=== PATIENT | female | born 1930 | race Caucasian/White ===

== ENCOUNTER 2017-03-19 22:03 | Observation (INO) | payer MEDICARE, OTHER ==
--- NOTE | 2017-03-19 23:44 | EDM.PDOC ---
ED HPI GENERAL MEDICAL PROBLEM - General Chief Complaint: General Stated Complaint: FALL Time Seen by Provider: 03/19/17 22:17 Source of Information: Reports: Other ([facility] staff) History Limitations: Reports: Altered Mental Status - History of Present Illness INITIAL COMMENTS - FREE TEXT/NARRATIVE: The patient has dementia and she is a resident of [facility] [place]. Today at about 4pm she was walking around and she stepped back and tripped over her leg and fell on her buttocks. Staff got her up and she was doing good. She sat on the couch. She got some dinner later. Now she will stand but she does not want to use her right leg. She has pain when moving it. The senior applications architect nurse evaluated her and could not reproduce any pain with palpation. She does not talk much. She did not hit her head or hurt her neck. Onset: Today, Sudden Duration: Hour(s): (about 4pm) Location: Reports: Lower Extremity, Right (hip) Improves with: Reports: None Worsens with: Reports: Movement Context: Reports: Activity (She was walking and she tripped and fell) Associated Symptoms: Reports: No Other Symptoms Generalized Pain Score (Numeric/FACES): 5 - Related Data Allergies Allergy/AdvReac Type Severity Reaction Status Date / Time No Known Allergies Allergy Verified 03/19/17 22:23 Home Meds: Home Meds Ergocalciferol (Vitamin D2) [Vitamin D] 1.25 mg PO WEEKLY 03/19/17 [History] Latanoprost [Xalatan 0.005% Ophth Soln] 1 drop EYEBOTH BEDTIME 03/19/17 [History ] Lisinopril 1 tab PO DAILY 03/19/17 [History] Multivitamin [Multivitamins] 1 tab PO DAILY 03/19/17 [History] Past Medical History HEENT History: Reports: Glaucoma, Macular Degeneration Cardiovascular History: Reports: Hypertension Social & Family History - Tobacco Use Smoking Status *Q: Never Smoker - Caffeine Use Caffeine Use: Reports: None - Recreational Drug Use Recreational Drug Use: No ED ROS GENERAL - Review of Systems Review Of Systems: See Below Constitutional: Reports: No Symptoms HEENT: Reports: No Symptoms Respiratory: Reports: No Symptoms Cardiovascular: Reports: No Symptoms Endocrine: Reports: No Symptoms GI/Abdominal: Reports: No Symptoms : Reports: No Symptoms Musculoskeletal: Reports: Other (Right leg pain) ED EXAM, GENERAL - Physical Exam Exam: See Below Exam Limited By: Altered Mental Status (She is confused and will only say a few words. She will follow commands) General Appearance: Alert, No Apparent Distress Ears: Normal External Exam Nose: Normal Inspection Head: Atraumatic, Normocephalic Neck: Normal Inspection Respiratory/Chest: No Respiratory Distress, Lungs Clear, Normal Breath Sounds Cardiovascular: Regular Rate, Rhythm, No Edema, No Murmur GI/Abdominal: Soft, Non-Tender, No Organomegaly, No Mass Back Exam: Normal Inspection Extremities: Normal Inspection, Other (No pain with palpation to the hip. No pain with internal and external rotation of the hip and axial loading. Good sensation and pulses distally.) Neurological: Alert, No Motor/Sensory Deficits Course - Vital Signs Last Recorded V/S: Last Vital Signs Temp 98.7 F 03/19/17 22:18 Pulse 89 03/19/17 22:18 Resp 16 03/19/17 22:18 BP 129/67 03/19/17 22:18 Pulse Ox 95 03/19/17 22:18 - Orders/Labs/Meds Orders: Active Orders 24 hr Category Date Time Status Peripheral IV Care [RC] . DIRECTED Care 03/20/17 00:55 Ordered Hip Min 1V w Pelvis Lt [CR] Routine Exams 03/20/17 Taken Hip Min 2V or 3V Rt [CR] Stat Exams 03/19/17 22:41 Taken Knee 3V Lt [CR] Stat Exams 03/19/17 23:48 Taken Lumbar Spine 2 or 3V [CR] Stat Exams 03/19/17 22:41 Taken Sodium Chloride 0.9% [Saline Flush] Med 03/20/17 00:55 Ordered 10 ml FLUSH ASDIRECTED PRN Peripheral IV Insertion Adult [OM.PC] Routine Oth 03/20/17 00:55 Ordered Medication Orders Sodium Chloride (Saline Flush) 10 ml FLUSH ASDIRECTED PRN PRN Reason: Keep Vein Open Meds: Medications Generic Name Dose Route Start Last Admin Trade Name Freq PRN Reason Stop Dose Admin Sodium Chloride 10 ml 03/20/17 00:55 Saline Flush FLUSH ASDIRECTED PRN Keep Vein Open - Re-Assessments/Exams Free Text/Narrative Re-Assessment/Exam: 03/19/17 23:44 I ordered an x-ray of her lumbar spine and right hip. The x-ray of her spine shows some degenerative changes and the x-ray of her hip does not show a fracture. I will have my nurse get her up and see how she does. 03/19/17 23:49 I went in to update the staff and family of the x-rays and the patient has some pain upon palpation and edema of the left knee. I will get an x-ray. 03/20/17 00:36 The x-ray of her left hip and pelvis does not show any fracture. I added that because she had pain when the x-ray tech was moving her leg. The x-ray of her knee shows a possible fracture to the tibial plateau where there is a screw. I had my nurse get her up and try to get her to walk. She would not bear any weight on that left side now. I will have [facility] take a look at that x-ray. I cannot send her back to [facility] like this she cannot even walk. I will admit her to observation. 03/20/17 00:55 The x-ray was read by [facility] and they say status post ORIF of lateral tibial plateau fracture in near-anatomic alignment and position. Lipohemarthrosis which needs to be correlated with the date of surgery (this may be postsurgical change if ORIF was recently performed.) She had the surgery done in 2000. This could be new and explaining her pain. The mechanism does not make sense. They said she fell backward but maybe they did not see the whole fall. I will put in some bridging orders and consult to Dr Lai. Departure - Departure Time of Disposition: 01:05 Disposition: Admitted As Inpatient 66 Condition: good Clinical Impression: Fall Qualifiers: Encounter type: initial encounter Qualified Code(s): W19.XXXA - Unspecified fall, initial encounter Dementia Qualifiers: Dementia type: unspecified type Dementia behavioral disturbance: without behavioral disturbance Qualified Code(s): F03.90 - Unspecified dementia without behavioral disturbance Fracture of proximal end of tibia Qualifiers: Encounter type: initial encounter Fracture type: closed Fracture morphology: other fracture Laterality: left Qualified Code(s): S82.192A - Other fracture of upper end of left tibia, initial encounter for closed fracture - Discharge Information Forms: ED Department Discharge - My Orders Last 24 Hours: My Active Orders 03/19/17 22:41 Hip Min 2V or 3V Rt [CR] Stat Lumbar Spine 2 or 3V [CR] Stat 03/19/17 23:48 Knee 3V Lt [CR] Stat 03/20/17 Hip Min 1V w Pelvis Lt [CR] Routine 03/20/17 00:55 Peripheral IV Care [RC] . DIRECTED Sodium Chloride 0.9% [Saline Flush] 10 ml FLUSH ASDIRECTED PRN Peripheral IV Insertion Adult [OM.PC] Routine - Assessment/Plan Last 24 Hours: My Active Orders 03/19/17 22:41 Hip Min 2V or 3V Rt [CR] Stat Lumbar Spine 2 or 3V [CR] Stat 03/19/17 23:48 Knee 3V Lt [CR] Stat 03/20/17 Hip Min 1V w Pelvis Lt [CR] Routine 03/20/17 00:55 Peripheral IV Care [RC] . DIRECTED Sodium Chloride 0.9% [Saline Flush] 10 ml FLUSH ASDIRECTED PRN Peripheral IV Insertion Adult [OM.PC] Routine
[2017-03-20] MEDS ORDERED: Sodium Chloride 0.9% 10 ML Syringe FLUSH PRN (00:55)
[2017-03-20] MEDS ORDERED: HYDROmorphone 0.5 MG/0.5 ML Syringe IVPUSH ONE (01:02)
[2017-03-20] MEDS ORDERED: Acetaminophen/HYDROcodone 325-5 MG Tab PO ONE (01:08)
[2017-03-20] MEDS: Ergocalciferol (Vitamin D2) 50,000 Unit Cap PO SCH (08:46)
[2017-03-20] MEDS: Docusate Sodium 100 MG Cap PO PRN (08:46)
[2017-03-20] MEDS ORDERED: Lisinopril 20 MG Tab PO SCH (09:00)
[2017-03-20] MEDS ORDERED: Multivitamins,Therapeutic Tab PO SCH (09:00)
--- NOTE | 2017-03-20 11:31 | CR ---
Lumbar spine: AP, lateral and coned-down lateral views centered to the lumbosacral junction were obtained. Mild endplate concavities are seen within L1. These are age-indeterminate. Scattered disc space narrowing is seen. Vacuum disc phenomena is noted within the L2-L3 and L4-L5 discs. Scattered endplate osteophytes are seen. Bony structures are osteoporotic. Prominent vascular calcification is noted within the aorta. Impression: 1. Endplate concavities within L1, age-indeterminate. 2. Degenerative change, osteopenia and vascular calcification are noted. Diagnostic code #3
--- NOTE | 2017-03-20 11:31 | CR ---
Left knee: Four views of the left knee were obtained. Fat fluid level appears to be present within the suprapatellar pouch. Screw noted across the tibia. Questionable lucent line on the lateral view within the tibial plateau, uncertain if this is acute or old. Chondrocalcinosis and vascular calcification is seen. Osteopenia is noted. Impression: 1. Lucent line on the lateral view within the tibial plateau. Uncertain if this is acute or old. Given the fat fluid level within the suprapatellar pouch acute nondisplaced fracture is more likely. 2. Other incidental findings. Diagnostic code #3
--- NOTE | 2017-03-20 11:31 | CR ---
Right hip: AP and frog leg lateral views of the right hip were obtained. Comparison: No previous study. Joint space within the right hip is preserved. Bony structures are osteopenic. Vascular calcification is noted. No acute fracture or other abnormality is seen. Impression: 1. Incidental findings. No acute bony abnormality is identified on two-view right hip exam. Diagnostic code #2
--- NOTE | 2017-03-20 11:55 | PCM.HP ---
H&P History of Present Illness - General Date of Service: 03/20/17 Admit Problem/Dx: Admission Diagnosis/Problem Admission Diagnosis/Problem Fall with left leg pain, knee swelling Source of Information: Family, Old Records (ER notes) History Limitations: Reports: Altered Mental Status (end stage dementia; able to answer some yes/no questions) - History of Present Illness Initial Comments - Free Text/Narative: Carmel is an 86yo female resident [place] [facility] [place] who was admitted through the ED last night after a fall with left lower extremity pain and inability to bare weight to left leg while in ER. Son gives me most of her history as she has end stage dementia. She suffered a fall last night while walking on her unit, "fell on her butt" but "seemed to have pain in her leg" so was brought into ER. This was unwitnessed fall, she was found on the floor. No other apparent injuries noted or reported. Patient has recently [place] [facility] [place], ambulates independently. Son reports "should use a walker but doesn't". She was previously living with her son who was caring for her. Today she is unable to answer most questions, does tell me her left knee hurts and winces in pain during exam of left knee today. PMH significant for dementia, HTN, vit D deficiency and glaucoma. She is DNR/ DNI code status. Generalized Pain Score (Numeric/FACES): 5 - Related Data Allergies/Adverse Reactions: Allergies Allergy/AdvReac Type Severity Reaction Status Date / Time No Known Allergies Allergy Verified 03/19/17 22:23 Home Medications: Home Meds Ergocalciferol (Vitamin D2) [Vitamin D] 1.25 mg PO WEEKLY 03/19/17 [History] Latanoprost [Xalatan 0.005% Ophth Soln] 1 drop EYEBOTH BEDTIME 03/19/17 [History ] Lisinopril 1 tab PO DAILY 03/19/17 [History] Multivitamin [Multivitamins] 1 tab PO DAILY 03/19/17 [History] Past Medical History HEENT History: Reports: Glaucoma, Macular Degeneration Cardiovascular History: Reports: Hypertension Neurological History: Reports: Other (See Below) (dementia) Social & Family History - Tobacco Use Smoking Status *Q: Never Smoker - Caffeine Use Caffeine Use: Reports: Coffee, Soda - Recreational Drug Use Recreational Drug Use: No H&P Review of Systems - Review of Systems: Review Of Systems: See Below Review of Systems Comment:: Unable to obtain d/t end stage dementia; patient does tell me her knee hurts ( left knee) Exam - Exam Exam: See Below - Vital Signs Vital Signs: Last Vital Signs Temp 99.1 F 03/20/17 11:50 Pulse 63 03/20/17 11:50 Resp 12 03/20/17 11:50 BP 135/68 03/20/17 11:50 Pulse Ox 95 03/20/17 11:50 Weight: 115 lb 12.8 oz - Exam General: Alert, Cooperative HEENT: Conjunctiva Clear, EOMI, Hearing Intact, Mucosa Moist & [place], Pupils Equal, Pupils Reactive Neck: Supple Lungs: Clear to Auscultation, Normal Respiratory Effort Cardiovascular: Regular Rate, Regular Rhythm Abdomen: Normal Bowel Sounds, Soft, Pelvis Stable (Female) Exam: Deferred Rectal (Female) Exam: Deferred Extremities: Other (left knee is with mild to moderate amt of swelling anterior to patella. Surgical scar is present over lateral tibial plateau. No pain appreciated with palpation of tibial plateau; pain is present to anterior lateral aspect of knee with palpation. Patella is unremarkable to palpation. Posterior knee/popliteal fossa is without swelling or discomfort noted. Pain with any motion of the knee while resting in bed this morning. Distally CMS is + ) Peripheral Pulses: 1+: Dorsalis Pedis (L), Dorsalis Pedis (R) Skin: Warm, Dry, Intact Neuro Extensive - Mental Status: Alert, Disorientation to Place, Disorientation to Time, Inattentive Psychiatric: Alert - Patient Data Lab Results last 24 hrs: Laboratory Results - last 24 hr 03/20/17 03/20/17 03/20/17 Range/Units 02:10 06:12 07:30 WBC 8.64 (3.98-10.04) K/mm3 RBC 4.60 (3.98-5.22) M/mm3 Hgb 14.2 (11.2-15.7) gm/L Hct 43.9 (34.1-44.9) % MCV 95.4 H (79.4-94.8) fl MCH 30.9 (25.6-32.2) pg MCHC 32.3 (32.2-35.5) g/dl RDW Std Deviation 47.8 H (36.4-46.3) fL Plt Count 298 (182-369) K/mm3 MPV 9.5 (9.4-12.3) fl Neut % (Auto) 73.5 H (34.0-71.1) % Lymph % (Auto) 14.4 L (19.3-51.7) % [place] % (Auto) 10.2 (4.7-12.5) % Eos % (Auto) 1.2 (0.7-5.8) Baso % (Auto) 0.5 (0.1-1.2) % Neut # (Auto) 6.36 H (1.56-6.13) K/mm3 Lymph # (Auto) 1.24 (1.18-3.74) K/mm3 [place] # (Auto) 0.88 H (0.24-0.36) K/mm3 Eos # (Auto) 0.10 (0.04-0.36) K/mm3 Baso # (Auto) 0.04 (0.01-0.08) K/mm3 Sodium (136-145) mEq/L Potassium (3.5-5.1) mEq/L Chloride (98-107) mEq/L Carbon Dioxide (21-32) mEq/L Anion Gap (5-15) BUN (7-18) mg/dL Creatinine (0.55-1.02) mg/dL Est Cr Clr Drug Dosing mL/min Estimated GFR (MDRD) (>60) mL/min BUN/Creatinine Ratio (14-18) Glucose (83-115) mg/dL Calcium (8.5-10.1) mg/dL Urine Color Yellow (Yellow) Urine Appearance Clear (Clear) Urine pH 6.0 (5.0-8.0) Ur Specific [place] 1.015 (1.005-1.030) Urine Protein Negative (Negative) Urine Glucose (UA) Negative (Negative) Urine Ketones Negative (Negative) Urine Occult Blood Negative (Negative) Urine Nitrite Negative (Negative) Urine Bilirubin Negative (Negative) Urine Urobilinogen 0.2 (0.2-1.0) Ur Leukocyte Esterase Negative (Negative) Urine RBC Not seen (0-5) /hpf Urine WBC Not seen (0-5) /hpf Ur Epithelial Cells Not Reportable Ur Squamous Epith Cells 0-5 (0-5) /hpf Urine Bacteria Not seen (FEW) /hpf Urine Mucus Few (FEW) /hpf MRSA (PCR) Negative 03/20/17 Range/Units 07:30 WBC (3.98-10.04) K/mm3 RBC (3.98-5.22) M/mm3 Hgb (11.2-15.7) gm/L Hct (34.1-44.9) % MCV (79.4-94.8) fl MCH (25.6-32.2) pg MCHC (32.2-35.5) g/dl RDW Std Deviation (36.4-46.3) fL Plt Count (182-369) K/mm3 MPV (9.4-12.3) fl Neut % (Auto) (34.0-71.1) % Lymph % (Auto) (19.3-51.7) % [place] % (Auto) (4.7-12.5) % Eos % (Auto) (0.7-5.8) Baso % (Auto) (0.1-1.2) % Neut # (Auto) (1.56-6.13) K/mm3 Lymph # (Auto) (1.18-3.74) K/mm3 [place] # (Auto) (0.24-0.36) K/mm3 Eos # (Auto) (0.04-0.36) K/mm3 Baso # (Auto) (0.01-0.08) K/mm3 Sodium 141 (136-145) mEq/L Potassium 4.6 (3.5-5.1) mEq/L Chloride 109 H (98-107) mEq/L Carbon Dioxide 25 (21-32) mEq/L Anion Gap 11.6 (5-15) BUN 23 H (7-18) mg/dL Creatinine 1.0 (0.55-1.02) mg/dL Est Cr Clr Drug Dosing 31.94 mL/min Estimated GFR (MDRD) 53 (>60) mL/min BUN/Creatinine Ratio 23.0 H (14-18) Glucose 95 (83-115) mg/dL Calcium 9.6 (8.5-10.1) mg/dL Urine Color (Yellow) Urine Appearance (Clear) Urine pH (5.0-8.0) Ur Specific [place] (1.005-1.030) Urine Protein (Negative) Urine Glucose (UA) (Negative) Urine Ketones (Negative) Urine Occult Blood (Negative) Urine Nitrite (Negative) Urine Bilirubin (Negative) Urine Urobilinogen (0.2-1.0) Ur Leukocyte Esterase (Negative) Urine RBC (0-5) /hpf Urine WBC (0-5) /hpf Ur Epithelial Cells Ur Squamous Epith Cells (0-5) /hpf Urine Bacteria (FEW) /hpf Urine Mucus (FEW) /hpf MRSA (PCR) Result Diagrams: 03/20/17 07:30 03/20/17 07:30 *Q Meaningful Use (ADM) - VTE *Q VTE Criteria *Q: - Stroke *Q Stroke Criteria *Q: - AMI *Q AMI Criteria *Q: - Problem List (1) Knee pain, acute SNOMED Code(s): 69487913 ICD Code: M25.569 - PAIN IN UNSPECIFIED KNEE Status: Acute Priority: High Current Visit: Yes Qualifiers: Laterality: left Qualified Code(s): M25.562 - Pain in left knee (2) Dementia SNOMED Code(s): 33808916 ICD Code: F03.90 - UNSPECIFIED DEMENTIA WITHOUT BEHAVIORAL DISTURBANCE Status: Chronic Priority: High Current Visit: Yes Qualifiers: Dementia type: unspecified type Dementia behavioral disturbance: without behavioral disturbance Qualified Code(s): F03.90 - Unspecified dementia without behavioral disturbance (3) Fall SNOMED Code(s): 1756892, 107618982 ICD Code: W19.XXXA - UNSPECIFIED FALL, INITIAL ENCOUNTER Status: Acute Priority: High Current Visit: Yes Qualifiers: Encounter type: initial encounter Qualified Code(s): W19.XXXA - Unspecified fall, initial encounter Problem List Initiated/Reviewed/Updated: Yes Orders Last 24hrs: Active Orders 24 hr Category Date Time Status Bedrest [RC] ASDIRECTED Care 03/20/17 02:23 Active Notify Provider Consults [RC] ASDIRECTED Care 03/20/17 02:25 Active Consult to Physician [CONS] Routine Cons 03/20/17 02:25 Active Regular Diet [DIET] Diet 03/20/17 Breakfast Active Acetaminophen/HYDROcodone [[place] 325-10 MG] Med 03/20/17 02:24 Active 1 - 2 tab PO Q6H PRN Docusate Sodium [Colace] Med 03/20/17 07:19 Active 100 mg PO BID PRN Ergocalciferol (Vitamin D2) [Vitamin D2] Med 03/20/17 09:00 Active 50,000 units PO We@0900 Latanoprost [Xalatan 0.005% Ophth Soln] Med 03/20/17 21:00 Active 0 ml EYEBOTH BEDTIME Lisinopril [Prinivil] Med 03/20/17 09:00 Active 40 mg PO DAILY Multivitamins,Therapeutic [Thera] Med 03/20/17 09:00 Active 1 each PO DAILY CM Case Management Follow Up [CM] Routine Oth 03/20/17 07:20 Active CM Social Work Follow Up [CM] Routine Oth 03/20/17 07:20 Active Code Status [Resuscitation Status] Routine Resus Stat 03/20/17 02:23 Ordered Medication Orders Hydrocodone Bitart/Acetaminophen ([place] 325-10 Mg) 1 - 2 tab PO Q6H PRN PRN Reason: Pain Docusate Sodium (Colace) 100 mg PO BID PRN PRN Reason: Constipation Last Admin: 03/20/17 08:46 Dose: 100 mg Ergocalciferol (Vitamin D2) 50,000 units PO We@0900 MIN Last Admin: 03/20/17 08:46 Dose: 50,000 units Latanoprost (Xalatan 0.005% Ophth Soln) 0 ml EYEBOTH BEDTIME MIN Lisinopril (Prinivil) 40 mg PO DAILY MIN Multivitamins (Thera) 1 each PO DAILY MIN Last Admin: 03/20/17 08:46 Dose: 1 each Assessment/Plan Comment:: I/P: Fall with left knee pain -? tibial plateau fx around previous hardware; no pain over this site with palpation or on exam. -Orthopedics consult; Will appreciate Dr. Lai for opinion and recommendations -Pain medications PRN -Ice to knee PRN -PT/OT pending Ortho recommendations Chronic: Dementia- end stage HTN- good control, cont home meds Glaucoma- cont home meds Other: GI prophylax/DVT prophylax with SCD's for now CM/SW for assist with DC planning Labs this am unremarkable, UA negative Fall precautions Patient is DNR/DNI code status
[2017-03-20] MEDS: Acetaminophen/HYDROcodone 325-10 MG Tab PO PRN ×2 (12:07→18:01)
--- NOTE | 2017-03-20 13:01 | CR ---
Pelvis and left hip: AP view of the pelvis was obtained as well as AP view of the left hip. Bony structures are osteopenic. Vascular calcification is noted. Joint spaces are preserved within both hips. No discrete fracture or other abnormality is appreciated. Impression: 1. Incidental findings. Nothing acute is definitely seen on AP pelvis or AP left hip exam. Diagnostic code #2 MTDD
--- NOTE | 2017-03-20 16:55 | PCM.SN ---
- Free Text/Narrative Note: Received notification from utilization review nurse in regards to patient's inpatient status and medical necessity for inpatient criteria not being met. Dr. Silva and I reviewed the patient medical record and recommended observation services which are appropriate from the time of admission. I contacted Dr. Rivero and discussed with him and utilization review committee recommendations. Dr. Rivero is in agreement with observation services from admission. Utilization committee notified to proceed with patient notification as outlined in our code 44 policy.
[2017-03-20] MEDS ORDERED: Latanoprost 0.005% Ophth Soln 2.5 ML Bottle EYEBOTH SCH (21:00)
[2017-03-20] MEDS: Latanoprost 0.005% Ophth Soln 2.5 ML Bottle **OWN MED EYEBOTH SCH (21:25)
[2017-03-21] MEDS: Acetaminophen/HYDROcodone 325-10 MG Tab PO PRN ×4 (00:19→19:28)
[2017-03-21] MEDS: LISINOPRIL 40 MG **OWN MED PO SCH (10:00)
[2017-03-21] MEDS: Famotidine 20 MG Tab PO SCH (10:01)
[2017-03-21] MEDS: MULTIVITAMINS THERAPEUTIC PO SCH (10:03)
[2017-03-21] MEDS: Docusate Sodium 100 MG Cap PO PRN (12:04)
--- NOTE | 2017-03-21 13:05 | PCM.PN ---
- General Info Date of Service: 03/21/17 Admission Dx/Problem (Free Text): Admission Diagnosis/Problem Admission Diagnosis/Problem Fall with left leg pain, knee swelling Patient is seen this morning; daughter is present in room. Daughter states patient rested well and ate good breakfast. Patient continues to have left knee/leg pain with movements. Dr. Lai did see and evaluate patient last evening, confirmed there is fracture of proximal tibia around screw. Recommends patient be placed in hinged knee brace locked in full extension at all times, toe touch wt baring and ortho f/up in 10 days. SW continues to work diligently with family for discharge plan. PT recommends SNF at this time. Functional Status: Reports: tolerating diet, urinating (incontinent). Denies: ambulating - Review of Systems General: Reports: No Symptoms Pulmonary: Denies: shortness of breath, cough Cardiovascular: Denies: Chest Pain Neurological: Reports: Confusion Systems Review Comment:: Difficult to obtain ROS due to patients end stage dementia; she is pleasant today. - Patient Data Vitals - most recent: Last Vital Signs Temp 99.9 F 03/21/17 08:35 Pulse 46 L 03/21/17 08:35 Resp 12 03/21/17 08:35 BP 123/59 L 03/21/17 08:35 Pulse Ox 92 L 03/21/17 08:35 Weight - most recent: 115 lb 9.6 oz I&O - last 24 hours: Intake & Output 03/20/17 03/21/17 03/21/17 22:59 06:59 14:59 Intake Total 800 60 Balance 800 60 Med Orders - Current: Current Medications Acetaminophen (Tylenol) 650 mg PO Q4H PRN PRN Reason: Pain Hydrocodone Bitart/Acetaminophen ([place] 325-10 Mg) 1 - 2 tab PO Q6H PRN PRN Reason: Pain Last Admin: 03/21/17 12:06 Dose: 1 tab Docusate Sodium (Colace) 100 mg PO BID PRN PRN Reason: Constipation Last Admin: 03/21/17 12:04 Dose: 100 mg Ergocalciferol (Vitamin D2) 50,000 units PO We@0900 [facility] Last Admin: 03/20/17 08:46 Dose: 50,000 units Famotidine (Pepcid) 20 mg PO DAILY [facility] Last Admin: 03/21/17 10:01 Dose: 20 mg Latanoprost (Xalatan 0.005% Ophth Soln) 0 ml EYEBOTH BEDTIME [facility] Last Admin: 03/20/17 21:25 Dose: 1 drop Multivitamins (Thera) 1 each PO DAILY [facility] Last Admin: 03/21/17 10:03 Dose: 1 each Lisinopril 40 Mg (Own Med) 1 each PO DAILY [facility] Last Admin: 03/21/17 10:00 Dose: 1 each Discontinued Medications Hydrocodone Bitart/Acetaminophen ([place] 325-5 Mg) 2 tab PO ONETIME ONE Stop: 03/20/17 01:09 Last Admin: 03/20/17 01:14 Dose: 2 tab Hydromorphone HCl (Dilaudid) 0.5 mg IVPUSH ONETIME ONE Stop: 03/20/17 01:03 Last Admin: 03/20/17 01:14 Dose: Not Given Latanoprost (Xalatan 0.005% Ophth Soln) 0 ml EYEBOTH BEDTIME [facility] Lisinopril (Prinivil) 40 mg PO DAILY [facility] Last Admin: 03/20/17 12:11 Dose: Not Given Multivitamins (Thera) 1 each PO DAILY [facility] Last Admin: 03/20/17 08:46 Dose: 1 each Sodium Chloride (Saline Flush) 10 ml FLUSH ASDIRECTED PRN PRN Reason: Keep Vein Open - Exam Quality Assessment: DVT prophylaxis (SCD's) General: alert, cooperative, no acute distress HEENT: Pupils equal, Pupils reactive, EOMI, Mucous membr. moist/pink Neck: supple Lungs: Clear to auscultation, Normal respiratory effort, Decreased breath sounds (bases bilat) Cardiovascular: Regular Rate, Regular Rhythm, No Murmurs Abdomen: bowel sounds present, soft, no tenderness, no distension (Female) Exam: Deferred Extremities: no edema, other (swelling to anterior left knee with pain to palpation to lateral condyle. Pain with any ROM. Distally CMS is +) Peripheral Pulses: 1+: Dorsalis Pedis (L), Dorsalis Pedis (R) Skin: warm, dry, intact Neurological: other (end stage dementia; does talk but is nonsensical other than yes/no answers) Psy/Mental Status: alert - Problem List & Annotations (1) Knee pain, acute SNOMED Code(s): 15867809 Code(s): M25.569 - PAIN IN UNSPECIFIED KNEE Status: Acute Priority: High Current Visit: Yes Qualifiers: Laterality: left Qualified Code(s): M25.562 - Pain in left knee (2) Dementia SNOMED Code(s): 92978616 Code(s): F03.90 - UNSPECIFIED DEMENTIA WITHOUT BEHAVIORAL DISTURBANCE Status: Chronic Priority: High Current Visit: Yes Qualifiers: Dementia type: unspecified type Dementia behavioral disturbance: without behavioral disturbance Qualified Code(s): F03.90 - Unspecified dementia without behavioral disturbance (3) Fall SNOMED Code(s): 3026986, 462606903 Code(s): W19.XXXA - UNSPECIFIED FALL, INITIAL ENCOUNTER Status: Acute Priority: High Current Visit: Yes Qualifiers: Encounter type: initial encounter Qualified Code(s): W19.XXXA - Unspecified fall, initial encounter (4) Tibial plateau fracture, left SNOMED Code(s): 226355167 Code(s): S82.142A - DISPLACED BICONDYLAR FRACTURE OF LEFT TIBIA, INIT Status: Acute Priority: High Current Visit: Yes Qualifiers: Encounter type: initial encounter Fracture type: closed Qualified Code(s) : S82.142A - Displaced bicondylar fracture of left tibia, initial encounter for closed fracture - Problem List Review Problem List Initiated/Reviewed/Updated: Yes - My Orders Last 24 Hours: My Active Orders 03/20/17 12:58 Antiembolic Devices [RC] Q12H SCD [Sequential Compression Device] [OM.PC] Routine 03/20/17 12:59 Acetaminophen [Tylenol] 650 mg PO Q4H PRN 03/20/17 13:01 Cooling Warming Measures [RC] ASDIRECTED Ice Pack [Ice Therapy] [OM.PC] Routine 03/20/17 21:00 Latanoprost [Xalatan 0.005% Ophth Soln] 0 ml EYEBOTH BEDTIME 03/21/17 09:00 Famotidine [Pepcid] 20 mg PO DAILY Multivitamins,Therapeutic [Thera] 1 each PO DAILY Non-Formulary Medication [NF Drug] 1 each PO DAILY 03/21/17 12:58 Weight bearing status [OM.PC] Routine - Plan Plan:: I/P: Fall with left knee pain- nondisplaced tibial plateau fracture -Orthopedics consult; Will appreciate Dr. Lai for opinion and recommendations -Dr. Lai recommendations- TTWB, hinged knee brace in locked full extension at all times, PT/OT, follow up with Orthopedics within 10-14 days for recheck; also recommends SNF stay. -Pain medications PRN -Ice to knee PRN -PT/OT pending Ortho recommendations Chronic: Dementia- end stage HTN- good control, cont home meds Glaucoma- cont home meds Other: -GI prophylax/DVT prophylax with SCD's for now -CM/SW for assist with DC planning---SW has been working diligently for discharge plan. Patient is medically stable for discharge and plan discharge for tomorrow--SNF/NH placement vs home with 24/7 family care pending families decision. -Labs this am unremarkable, UA negative -Fall precautions Patient is DNR/DNI code status
--- NOTE | 2017-03-21 13:13 | PCM.CONS ---
H&P History of Present Illness - General Date of Service: 03/20/17 Admit Problem/Dx: Admission Diagnosis/Problem Admission Diagnosis/Problem Fall with left leg pain, knee swelling Source of Information: Family, Provider, RN History Limitations: Reports: Altered Mental Status - History of Present Illness Initial Comments - Free Text/Narative: This is an 86 year old female that lives at assisted living at was walking and had a fall yesterday afternoon. She subsequently would not bear weight on her left leg and she was taken to the emergency room due to pain and inability to ambulate. At that time she had her back, hip and knee examined and was found to have a possible fracture to the lateral tibial plateau. She was admitted by medicine at that time and we were consulted. She was ambulating with assistive devices before this fall. She had a previous surgery for a tibial plateau fracture on the left leg 16-17 years ago. She had been doing well and showing no signs of pain before the fall. Generalized Pain Score (Numeric/FACES): 0 - Related Data Allergies/Adverse Reactions: Allergies Allergy/AdvReac Type Severity Reaction Status Date / Time No Known Allergies Allergy Verified 03/19/17 22:23 Home Medications: Home Meds Ergocalciferol (Vitamin D2) [Vitamin D] 1.25 mg PO WEEKLY 03/19/17 [History] Latanoprost [Xalatan 0.005% Ophth Soln] 1 drop EYEBOTH BEDTIME 03/19/17 [History ] Lisinopril 1 tab PO DAILY 03/19/17 [History] Multivitamin [Multivitamins] 1 tab PO DAILY 03/19/17 [History] Past Medical History HEENT History: Reports: Glaucoma, Macular Degeneration Cardiovascular History: Reports: Hypertension Neurological History: Reports: Other (See Below) (dementia) Social & Family History - Tobacco Use Smoking Status *Q: Never Smoker - Caffeine Use Caffeine Use: Reports: Coffee, Soda - Recreational Drug Use Recreational Drug Use: No H&P Review of Systems - Review of Systems: Review Of Systems: ROS reveals no pertinent complaints other than HPI. Exam - Exam Exam: See Below - Vital Signs Vital Signs: Last Vital Signs Temp 37.7 C 03/21/17 08:35 Pulse 46 L 03/21/17 08:35 Resp 12 03/21/17 08:35 BP 123/59 L 03/21/17 08:35 Pulse Ox 92 L 03/21/17 08:35 Weight: 52.435 kg - Exam Physical Exam Comments:: Pelvis: stable to AP and lateral compression LLE: no pain with log roll of the left hip, with flexion of the knee and hip patient verbalizes pain but it is difficult to locate, pain to palpation over the lateral joint line and tibial plateau, no pain medial or retropatellar, neurovascularly intact distally with less than 2 sec cap refill, knee was stable to varus and valgus stresses - Patient Data Result Diagrams: 03/20/17 07:30 03/20/17 07:30 Consult PN Assessment/Plan Problem List Initiated/Reviewed/Updated: Yes Plan: A: nondisplaced left lateral tibial plateau fracture P: At this time the fracture is non-operative. I would recommend increased supervision for the patient including possible shelter for a time. Patient will be placed in a hinged knee brace locked in extension and be touch toe weight bearing. Will consult PT and OT for gait training at this time. Will plan on seeing patient in clinic in 10-14 days for repeat radiographs. All questions were sought and answered with the patients son and daughter.
[2017-03-21] MEDS: Latanoprost 0.005% Ophth Soln 2.5 ML Bottle **OWN MED EYEBOTH SCH (21:05)
[2017-03-22] MEDS: Acetaminophen/HYDROcodone 325-10 MG Tab PO PRN ×4 (02:07→22:07)
[2017-03-22] MEDS ORDERED: Bisacodyl 10 MG Supp RECTAL ONE (08:15)
[2017-03-22] MEDS: Famotidine 20 MG Tab PO SCH (09:32)
[2017-03-22] MEDS: MULTIVITAMINS THERAPEUTIC PO SCH (09:32)
[2017-03-22] MEDS: LISINOPRIL 40 MG **OWN MED PO SCH (09:33)
--- NOTE | 2017-03-22 11:21 | PCM.PN ---
- General Info Date of Service: 03/22/17 Admission Dx/Problem (Free Text): Admission Diagnosis/Problem Admission Diagnosis/Problem Fall with left leg pain, knee swelling Subjective Update: Follow Up Functional Status: Reports: pain controlled, tolerating diet, urinating. Denies : new symptoms - Review of Systems General: Denies: Fever, Weakness, Fatigue, Malaise, Chills HEENT: Reports: no symptoms Pulmonary: Denies: shortness of breath Cardiovascular: Denies: Chest Pain, Palpitations, Dyspnea on Exertion, Edema Gastrointestinal: Denies: Abdominal pain, Nausea, Vomiting Genitourinary: Reports: no symptoms Musculoskeletal: Reports: joint pain, other Skin: Reports: no symptoms Neurological: Reports: Confusion (baseline dementia), Difficulty Walking, Gait Disturbance Psychiatric: Denies: depression, anxiety, agitation Systems Review Comment:: No overnight or acute issues. She essentially well. She has no new complaints. - Patient Data Vitals - most recent: Last Vital Signs Temp 37.3 C 03/22/17 08:40 Pulse 88 03/22/17 08:40 Resp 20 03/22/17 08:40 BP 136/51 L 03/22/17 08:40 Pulse Ox 95 03/22/17 08:40 Weight - most recent: 52.934 kg I&O - last 24 hours: Intake & Output 03/21/17 03/22/17 03/22/17 22:59 06:59 14:59 Intake Total 130 250 120 Balance 130 250 120 Med Orders - Current: Current Medications Acetaminophen (Tylenol) 650 mg PO Q4H PRN PRN Reason: Pain Hydrocodone Bitart/Acetaminophen ([place] 325-10 Mg) 1 - 2 tab PO Q6H PRN PRN Reason: Pain Last Admin: 03/22/17 08:50 Dose: 2 tab Docusate Sodium (Colace) 100 mg PO BID PRN PRN Reason: Constipation Last Admin: 03/21/17 12:04 Dose: 100 mg Ergocalciferol (Vitamin D2) 50,000 units PO We@0900 [facility] Last Admin: 03/20/17 08:46 Dose: 50,000 units Famotidine (Pepcid) 20 mg PO DAILY [facility] Last Admin: 03/22/17 09:32 Dose: 20 mg Latanoprost (Xalatan 0.005% Ophth Soln) 0 ml EYEBOTH BEDTIME [facility] Last Admin: 03/21/17 21:05 Dose: 1 drop Multivitamins (Thera) 1 each PO DAILY [facility] Last Admin: 03/22/17 09:32 Dose: 1 each Lisinopril 40 Mg (Own Med) 1 each PO DAILY [facility] Last Admin: 03/22/17 09:33 Dose: 1 each Discontinued Medications Hydrocodone Bitart/Acetaminophen ([place] 325-5 Mg) 2 tab PO ONETIME ONE Stop: 03/20/17 01:09 Last Admin: 03/20/17 01:14 Dose: 2 tab Bisacodyl (Dulcolax) 10 mg RECTAL ONETIME ONE Stop: 03/22/17 08:16 Last Admin: 03/22/17 08:34 Dose: 10 mg Hydromorphone HCl (Dilaudid) 0.5 mg IVPUSH ONETIME ONE Stop: 03/20/17 01:03 Last Admin: 03/20/17 01:14 Dose: Not Given Latanoprost (Xalatan 0.005% Ophth Soln) 0 ml EYEBOTH BEDTIME [facility] Lisinopril (Prinivil) 40 mg PO DAILY [facility] Last Admin: 03/20/17 12:11 Dose: Not Given Multivitamins (Thera) 1 each PO DAILY [facility] Last Admin: 03/20/17 08:46 Dose: 1 each Sodium Chloride (Saline Flush) 10 ml FLUSH ASDIRECTED PRN PRN Reason: Keep Vein Open - Exam General: alert, cooperative, no acute distress HEENT: Pupils equal, Pupils reactive, Mucous membr. moist/pink Neck: supple, trachea midline, no JVD, no thyromegaly Lungs: Normal respiratory effort, Decreased breath sounds Cardiovascular: Regular Rate, Regular Rhythm, No Murmurs Abdomen: bowel sounds present, soft, no tenderness, no distension (Female) Exam: Deferred Back Exam: Normal Inspection, Decreased Range of Motion Extremities: normal pulses, no cyanosis, no calf tenderness, edema (mild edema on left knee) Peripheral Pulses: 1+: Dorsalis Pedis (L), Dorsalis Pedis (R) Skin: warm, dry, intact Wound/Incisions: healing well Neurological: no new focal deficit Psy/Mental Status: alert, normal affect, normal mood - Problem List & Annotations (1) Fall SNOMED Code(s): 4532741, 471108780 Code(s): W19.XXXA - UNSPECIFIED FALL, INITIAL ENCOUNTER Status: Inactive Priority: High Current Visit: Yes Qualifiers: Encounter type: initial encounter Qualified Code(s): W19.XXXA - Unspecified fall, initial encounter (2) Knee pain, acute SNOMED Code(s): 53879425 Code(s): M25.569 - PAIN IN UNSPECIFIED KNEE Status: Acute Priority: High Current Visit: Yes Qualifiers: Laterality: left Qualified Code(s): M25.562 - Pain in left knee - Problem List Review Problem List Initiated/Reviewed/Updated: Yes - Plan Plan:: I/P: Fall with left knee pain- nondisplaced tibial plateau fracture - Orthopedics consulted - Dr. Lai recommendations- TTWB, hinged knee brace in locked full extension at all times, PT/OT, follow up with Orthopedics within 10-14 days for recheck; also recommends SNF stay. - Pain medications PRN - Ice to knee PRN - PT/OT pending Ortho recommendations Chronic: Dementia- end stage HTN- good control, cont home meds Glaucoma- cont home meds Other: - GI prophylax/DVT prophylax with SCD's for now - CM/SW for assist with DC planning---SW has been working diligently for discharge plan. Patient is medically stable for discharge and plan discharge for tomorrow--SNF/NH placement vs home with 24/7 family care pending families decision. - Labs this am unremarkable, UA negative - Fall precautions Patient is DNR/DNI code status Awaiting input from management pending discharge
[2017-03-22] MEDS: Latanoprost 0.005% Ophth Soln 2.5 ML Bottle **OWN MED EYEBOTH SCH (21:53)
[2017-03-23] MEDS: Acetaminophen/HYDROcodone 325-10 MG Tab PO PRN ×3 (04:58→20:55)
--- NOTE | 2017-03-23 08:05 | PCM.PN ---
- General Info Date of Service: 03/23/17 Admission Dx/Problem (Free Text): Admission Diagnosis/Problem Admission Diagnosis/Problem Fall with left leg pain, knee swelling Subjective Update: Follow Up Functional Status: Reports: pain controlled, tolerating diet, urinating. Denies : new symptoms - Review of Systems General: Denies: Fever, Chills HEENT: Reports: no symptoms Pulmonary: Denies: shortness of breath Cardiovascular: Denies: Chest Pain, Dyspnea on Exertion, Edema Gastrointestinal: Denies: Abdominal pain, Nausea, Vomiting Genitourinary: Denies: no symptoms Musculoskeletal: Denies: no symptoms Skin: Denies: no symptoms Neurological: Reports: Confusion, Pre-Existing Deficit, Difficulty Walking, Gait Disturbance Psychiatric: Denies: depression, anxiety, agitation Systems Review Comment:: No overnight or acute issues. She is essentially the same. - Patient Data Vitals - most recent: Last Vital Signs Temp 36.9 C 03/22/17 21:57 Pulse 98 03/22/17 21:57 Resp 14 03/22/17 21:57 BP 138/65 03/22/17 21:57 Pulse Ox 93 L 03/22/17 21:57 Weight - most recent: 53.887 kg I&O - last 24 hours: Intake & Output 03/22/17 03/23/17 03/23/17 22:59 06:59 14:59 Intake Total 550 Balance 550 Med Orders - Current: Current Medications Acetaminophen (Tylenol) 650 mg PO Q4H PRN PRN Reason: Pain Hydrocodone Bitart/Acetaminophen ([place] 325-10 Mg) 1 - 2 tab PO Q6H PRN PRN Reason: Pain Last Admin: 03/23/17 04:58 Dose: 1 tab Docusate Sodium (Colace) 100 mg PO BID PRN PRN Reason: Constipation Last Admin: 03/21/17 12:04 Dose: 100 mg Ergocalciferol (Vitamin D2) 50,000 units PO We@0900 [facility] Last Admin: 03/20/17 08:46 Dose: 50,000 units Famotidine (Pepcid) 20 mg PO DAILY [facility] Last Admin: 03/22/17 09:32 Dose: 20 mg Latanoprost (Xalatan 0.005% Ophth Soln) 0 ml EYEBOTH BEDTIME [facility] Last Admin: 03/22/17 21:53 Dose: 1 drop Multivitamins (Thera) 1 each PO DAILY [facility] Last Admin: 03/22/17 09:32 Dose: 1 each Lisinopril 40 Mg (Own Med) 1 each PO DAILY [facility] Last Admin: 03/22/17 09:33 Dose: 1 each Discontinued Medications Hydrocodone Bitart/Acetaminophen ([place] 325-5 Mg) 2 tab PO ONETIME ONE Stop: 03/20/17 01:09 Last Admin: 03/20/17 01:14 Dose: 2 tab Bisacodyl (Dulcolax) 10 mg RECTAL ONETIME ONE Stop: 03/22/17 08:16 Last Admin: 03/22/17 08:34 Dose: 10 mg Hydromorphone HCl (Dilaudid) 0.5 mg IVPUSH ONETIME ONE Stop: 03/20/17 01:03 Last Admin: 03/20/17 01:14 Dose: Not Given Latanoprost (Xalatan 0.005% Ophth Soln) 0 ml EYEBOTH BEDTIME [facility] Lisinopril (Prinivil) 40 mg PO DAILY [facility] Last Admin: 03/20/17 12:11 Dose: Not Given Multivitamins (Thera) 1 each PO DAILY [facility] Last Admin: 03/20/17 08:46 Dose: 1 each Sodium Chloride (Saline Flush) 10 ml FLUSH ASDIRECTED PRN PRN Reason: Keep Vein Open - Exam General: alert, no acute distress HEENT: Pupils equal, Pupils reactive Neck: supple, trachea midline Lungs: Clear to auscultation, Normal respiratory effort Cardiovascular: Regular Rate, Regular Rhythm Abdomen: bowel sounds present, soft, no tenderness, no distension (Female) Exam: Deferred Back Exam: Normal Inspection, Decreased Range of Motion Extremities: no edema, normal pulses, no tenderness/swelling, no clubbing, no cyanosis, no calf tenderness Peripheral Pulses: 2+: Dorsalis Pedis (L), Dorsalis Pedis (R) Skin: warm, dry, intact Neurological: no new focal deficit Psy/Mental Status: alert, normal affect, normal mood - Problem List & Annotations (1) Fall SNOMED Code(s): 2454510, 440188983 Code(s): W19.XXXA - UNSPECIFIED FALL, INITIAL ENCOUNTER Status: Inactive Priority: High Current Visit: Yes Qualifiers: Encounter type: initial encounter Qualified Code(s): W19.XXXA - Unspecified fall, initial encounter (2) Knee pain, acute SNOMED Code(s): 01531573 Code(s): M25.569 - PAIN IN UNSPECIFIED KNEE Status: Acute Priority: High Current Visit: Yes Qualifiers: Laterality: left Qualified Code(s): M25.562 - Pain in left knee - Problem List Review Problem List Initiated/Reviewed/Updated: Yes - Plan Plan:: I/P: Fall with left knee pain- nondisplaced tibial plateau fracture - Orthopedics consulted - Dr. Lai recommendations- TTWB, hinged knee brace in locked full extension at all times, PT/OT, follow up with Orthopedics within 10-14 days for recheck; also recommends SNF stay. - Pain medications PRN - Ice to knee PRN - PT/OT pending Ortho recommendations Chronic: Dementia- end stage HTN- good control, cont home meds Glaucoma- cont home meds Other: - GI prophylax/DVT prophylax with SCD's for now - CM/SW for assist with DC planning---SW has been working diligently for discharge plan. Patient is medically stable for discharge and plan discharge for tomorrow--SNF/NH placement vs home with 24/7 family care pending families decision. - Labs this am unremarkable, UA negative - Fall precautions Patient is DNR/DNI code status LOS > 96hrs pending NH/SH placement
[2017-03-23] MEDS: MULTIVITAMINS THERAPEUTIC PO SCH (08:16)
[2017-03-23] MEDS: Famotidine 20 MG Tab PO SCH (08:17)
[2017-03-23] MEDS: LISINOPRIL 40 MG **OWN MED PO SCH (08:18)
[2017-03-23] MEDS: Latanoprost 0.005% Ophth Soln 2.5 ML Bottle **OWN MED EYEBOTH SCH (20:55)
[2017-03-24] MEDS: MULTIVITAMINS THERAPEUTIC PO SCH (10:01)
[2017-03-24] MEDS: Famotidine 20 MG Tab PO SCH (10:01)
[2017-03-24] MEDS: LISINOPRIL 40 MG **OWN MED PO SCH (10:01)
[2017-03-24] MEDS: Acetaminophen/HYDROcodone 325-10 MG Tab PO PRN ×2 (10:03→22:05)
--- NOTE | 2017-03-24 10:34 | PCM.PN ---
- General Info Date of Service: 03/24/17 Functional Status: Reports: pain controlled, tolerating diet, urinating - Review of Systems General: Reports: No Symptoms HEENT: Reports: no symptoms Pulmonary: Reports: no symptoms Cardiovascular: Reports: No Symptoms Gastrointestinal: Reports: No symptoms Genitourinary: Reports: no symptoms Musculoskeletal: Reports: joint pain (left knee) Skin: Reports: no symptoms Neurological: Reports: No Symptoms Psychiatric: Reports: no symptoms - Patient Data Vitals - most recent: Last Vital Signs Temp 36.9 C 03/24/17 05:20 Pulse 57 L 03/24/17 05:20 Resp 18 03/24/17 05:20 BP 129/73 03/24/17 05:20 Pulse Ox 93 L 03/24/17 05:20 Weight - most recent: 52.889 kg I&O - last 24 hours: Intake & Output 03/23/17 03/24/17 03/24/17 22:59 06:59 14:59 Intake Total 410 600 Balance 410 600 Med Orders - Current: Current Medications Acetaminophen (Tylenol) 650 mg PO Q4H PRN PRN Reason: Pain Hydrocodone Bitart/Acetaminophen ([place] 325-10 Mg) 1 - 2 tab PO Q6H PRN PRN Reason: Pain Last Admin: 03/24/17 10:03 Dose: 1 tab Docusate Sodium (Colace) 100 mg PO BID PRN PRN Reason: Constipation Last Admin: 03/21/17 12:04 Dose: 100 mg Ergocalciferol (Vitamin D2) 50,000 units PO We@0900 [facility] Last Admin: 03/20/17 08:46 Dose: 50,000 units Famotidine (Pepcid) 20 mg PO DAILY [facility] Last Admin: 03/24/17 10:01 Dose: 20 mg Latanoprost (Xalatan 0.005% Ophth Soln) 0 ml EYEBOTH BEDTIME [facility] Last Admin: 03/23/17 20:55 Dose: 1 drop Multivitamins (Thera) 1 each PO DAILY [facility] Last Admin: 03/24/17 10:01 Dose: 1 each Lisinopril 40 Mg (Own Med) 1 each PO DAILY [facility] Last Admin: 03/24/17 10:01 Dose: 1 each Discontinued Medications Hydrocodone Bitart/Acetaminophen ([place] 325-5 Mg) 2 tab PO ONETIME ONE Stop: 03/20/17 01:09 Last Admin: 03/20/17 01:14 Dose: 2 tab Bisacodyl (Dulcolax) 10 mg RECTAL ONETIME ONE Stop: 03/22/17 08:16 Last Admin: 03/22/17 08:34 Dose: 10 mg Hydromorphone HCl (Dilaudid) 0.5 mg IVPUSH ONETIME ONE Stop: 03/20/17 01:03 Last Admin: 03/20/17 01:14 Dose: Not Given Latanoprost (Xalatan 0.005% Ophth Soln) 0 ml EYEBOTH BEDTIME [facility] Lisinopril (Prinivil) 40 mg PO DAILY [facility] Last Admin: 03/20/17 12:11 Dose: Not Given Multivitamins (Thera) 1 each PO DAILY [facility] Last Admin: 03/20/17 08:46 Dose: 1 each Sodium Chloride (Saline Flush) 10 ml FLUSH ASDIRECTED PRN PRN Reason: Keep Vein Open - Exam Quality Assessment: DVT prophylaxis General: alert, no acute distress HEENT: Pupils equal, Pupils reactive, EOMI Neck: supple, trachea midline Lungs: Normal respiratory effort Cardiovascular: Regular Rate Abdomen: bowel sounds present, soft, no tenderness, no distension (Female) Exam: Deferred Back Exam: Normal Inspection Extremities: normal pulses Neurological: no new focal deficit Psy/Mental Status: alert - Problem List Review Problem List Initiated/Reviewed/Updated: Yes - Plan Plan:: I/P: Fall with left knee pain- nondisplaced tibial plateau fracture - Orthopedics consulted - Dr. Lai recommendations- TTWB, hinged knee brace in locked full extension at all times, PT/OT, follow up with Orthopedics within 10-14 days for recheck; also recommends SNF stay. - Pain medications PRN - Ice to knee PRN - PT/OT pending Ortho recommendations Chronic: Dementia- end stage HTN- good control, cont home meds Glaucoma- cont home meds Other: - GI prophylax/DVT prophylax with SCD's for now - CM/SW for assist with DC planning---SW has been working diligently for discharge plan. Patient is medically stable for discharge and plan discharge for tomorrow--SNF/NH placement vs home with 24/7 family care pending families decision. - Labs this am unremarkable, UA negative - Fall precautions Patient is DNR/DNI code status; discuss/clarify comfort care. LOS > 96hrs pending NH/SH placement
[2017-03-24] MEDS: Latanoprost 0.005% Ophth Soln 2.5 ML Bottle **OWN MED EYEBOTH SCH (21:05)
[2017-03-25] MEDS: Acetaminophen/HYDROcodone 325-10 MG Tab PO PRN ×2 (06:22→13:49)
[2017-03-25] MEDS: MULTIVITAMINS THERAPEUTIC PO SCH (09:21)
[2017-03-25] MEDS: Famotidine 20 MG Tab PO SCH (09:21)
[2017-03-25] MEDS: LISINOPRIL 40 MG **OWN MED PO SCH (09:22)
--- NOTE | 2017-03-25 12:24 | PCM.PN ---
- General Info Date of Service: 03/25/17 Functional Status: Reports: pain controlled, tolerating diet, ambulating, urinating - Review of Systems General: Reports: No Symptoms HEENT: Reports: no symptoms Pulmonary: Reports: no symptoms Cardiovascular: Reports: No Symptoms Gastrointestinal: Reports: No symptoms Genitourinary: Reports: no symptoms Musculoskeletal: Reports: leg pain Skin: Reports: no symptoms Neurological: Reports: No Symptoms Psychiatric: Reports: no symptoms - Patient Data Vitals - most recent: Last Vital Signs Temp 36.9 C 03/25/17 08:29 Pulse 48 L 03/25/17 08:29 Resp 20 03/25/17 08:29 BP 144/83 H 03/25/17 08:29 Pulse Ox 94 L 03/25/17 08:29 Weight - most recent: 53.841 kg I&O - last 24 hours: Intake & Output 03/24/17 03/25/17 03/25/17 22:59 06:59 14:59 Intake Total 1310 120 Balance 1310 120 Med Orders - Current: Current Medications Acetaminophen (Tylenol) 650 mg PO Q4H PRN PRN Reason: Pain Hydrocodone Bitart/Acetaminophen ([place] 325-10 Mg) 1 - 2 tab PO Q6H PRN PRN Reason: Pain Last Admin: 03/25/17 06:22 Dose: 1 tab Docusate Sodium (Colace) 100 mg PO BID PRN PRN Reason: Constipation Last Admin: 03/21/17 12:04 Dose: 100 mg Ergocalciferol (Vitamin D2) 50,000 units PO We@0900 [facility] Last Admin: 03/20/17 08:46 Dose: 50,000 units Famotidine (Pepcid) 20 mg PO DAILY [facility] Last Admin: 03/25/17 09:21 Dose: 20 mg Latanoprost (Xalatan 0.005% Ophth Soln) 0 ml EYEBOTH BEDTIME [facility] Last Admin: 03/24/17 21:05 Dose: 1 drop Multivitamins (Thera) 1 each PO DAILY [facility] Last Admin: 03/25/17 09:21 Dose: 1 each Lisinopril 40 Mg (Own Med) 1 each PO DAILY [facility] Last Admin: 03/25/17 09:22 Dose: 1 each Discontinued Medications Hydrocodone Bitart/Acetaminophen ([place] 325-5 Mg) 2 tab PO ONETIME ONE Stop: 03/20/17 01:09 Last Admin: 03/20/17 01:14 Dose: 2 tab Bisacodyl (Dulcolax) 10 mg RECTAL ONETIME ONE Stop: 03/22/17 08:16 Last Admin: 03/22/17 08:34 Dose: 10 mg Hydromorphone HCl (Dilaudid) 0.5 mg IVPUSH ONETIME ONE Stop: 03/20/17 01:03 Last Admin: 03/20/17 01:14 Dose: Not Given Latanoprost (Xalatan 0.005% Ophth Soln) 0 ml EYEBOTH BEDTIME MIN Lisinopril (Prinivil) 40 mg PO DAILY [facility] Last Admin: 03/20/17 12:11 Dose: Not Given Multivitamins (Thera) 1 each PO DAILY [facility] Last Admin: 03/20/17 08:46 Dose: 1 each Sodium Chloride (Saline Flush) 10 ml FLUSH ASDIRECTED PRN PRN Reason: Keep Vein Open - Exam Quality Assessment: DVT prophylaxis General: alert, oriented HEENT: Pupils equal, Pupils reactive, EOMI Neck: supple, trachea midline Lungs: Normal respiratory effort Cardiovascular: Regular Rate, Regular Rhythm Abdomen: bowel sounds present, soft, no tenderness, no distension (Female) Exam: Deferred Back Exam: Normal Inspection Extremities: normal pulses Skin: warm Neurological: no new focal deficit Psy/Mental Status: alert - Problem List Review Problem List Initiated/Reviewed/Updated: Yes - My Orders Last 24 Hours: My Active Orders 03/26/17 05:00 BMP [BASIC METABOLIC PANEL,BMP] [CHEM] DAILY CBC WITH AUTO DIFF [HEME] DAILY MAGNESIUM [CHEM] DAILY 03/27/17 05:00 BMP [BASIC METABOLIC PANEL,BMP] [CHEM] DAILY CBC WITH AUTO DIFF [HEME] DAILY MAGNESIUM [CHEM] DAILY - Plan Plan:: I/P: Fall with left knee pain- nondisplaced tibial plateau fracture - Orthopedics consulted - Dr. Lai recommendations- TTWB, hinged knee brace in locked full extension at all times, PT/OT, follow up with Orthopedics within 10-14 days for recheck; also recommends SNF stay. - Pain medications PRN - Ice to knee PRN - PT/OT pending Ortho recommendations Chronic: Dementia- end stage HTN- good control, cont home meds Glaucoma- cont home meds Other: - GI prophylax/DVT prophylax with SCD's for now - CM/SW for assist with DC planning---SW has been working diligently for discharge plan. Patient is medically stable for discharge and plan discharge for tomorrow--SNF/NH placement vs home with 24/7 family care pending families decision. - Labs this am unremarkable, UA negative - Fall precautions Patient is DNR/DNI code status; discuss/clarify comfort care, TBA. LOS > 96hrs pending NH/SH placement
[2017-03-25] MEDS: Latanoprost 0.005% Ophth Soln 2.5 ML Bottle **OWN MED EYEBOTH SCH (21:48)
[2017-03-26] MEDS: Acetaminophen/HYDROcodone 325-10 MG Tab PO PRN ×2 (00:24→20:29)
[2017-03-26] MEDS: Famotidine 20 MG Tab PO SCH (09:29)
[2017-03-26] MEDS: LISINOPRIL 40 MG **OWN MED PO SCH (09:30)
[2017-03-26] MEDS: MULTIVITAMINS THERAPEUTIC PO SCH (09:30)
[2017-03-26] MEDS: Acetaminophen 325 MG Tab PO PRN (12:40)
--- NOTE | 2017-03-26 12:59 | PCM.PN ---
- General Info Date of Service: 03/26/17 Functional Status: Reports: pain controlled, tolerating diet, ambulating, urinating - Review of Systems General: Reports: No Symptoms HEENT: Reports: no symptoms Pulmonary: Reports: no symptoms Cardiovascular: Reports: No Symptoms Gastrointestinal: Reports: No symptoms Genitourinary: Reports: no symptoms Musculoskeletal: Reports: no symptoms Skin: Reports: no symptoms Neurological: Reports: No Symptoms Psychiatric: Reports: no symptoms - Patient Data Vitals - most recent: Last Vital Signs Temp 36.8 C 03/26/17 08:03 Pulse 88 03/26/17 08:03 Resp 16 03/26/17 08:03 BP 144/64 H 03/26/17 08:03 Pulse Ox 96 03/26/17 08:03 Weight - most recent: 53.887 kg I&O - last 24 hours: Intake & Output 03/25/17 03/26/17 03/26/17 22:59 06:59 14:59 Intake Total 1000 700 640 Balance 1000 700 640 Med Orders - Current: Current Medications Acetaminophen (Tylenol) 650 mg PO Q4H PRN PRN Reason: Pain Last Admin: 03/26/17 12:40 Dose: 650 mg Hydrocodone Bitart/Acetaminophen ([place] 325-10 Mg) 1 - 2 tab PO Q6H PRN PRN Reason: Pain Last Admin: 03/26/17 00:24 Dose: 1 tab Docusate Sodium (Colace) 100 mg PO BID PRN PRN Reason: Constipation Last Admin: 03/21/17 12:04 Dose: 100 mg Ergocalciferol (Vitamin D2) 50,000 units PO We@0900 [facility] Last Admin: 03/20/17 08:46 Dose: 50,000 units Famotidine (Pepcid) 20 mg PO DAILY [facility] Last Admin: 03/26/17 09:29 Dose: 20 mg Latanoprost (Xalatan 0.005% Ophth Soln) 0 ml EYEBOTH BEDTIME [facility] Last Admin: 03/25/17 21:48 Dose: 1 drop Multivitamins (Thera) 1 each PO DAILY [facility] Last Admin: 03/26/17 09:30 Dose: 1 each Lisinopril 40 Mg (Own Med) 1 each PO DAILY [facility] Last Admin: 03/26/17 09:30 Dose: 1 each Discontinued Medications Hydrocodone Bitart/Acetaminophen ([place] 325-5 Mg) 2 tab PO ONETIME ONE Stop: 03/20/17 01:09 Last Admin: 03/20/17 01:14 Dose: 2 tab Bisacodyl (Dulcolax) 10 mg RECTAL ONETIME ONE Stop: 03/22/17 08:16 Last Admin: 03/22/17 08:34 Dose: 10 mg Hydromorphone HCl (Dilaudid) 0.5 mg IVPUSH ONETIME ONE Stop: 03/20/17 01:03 Last Admin: 03/20/17 01:14 Dose: Not Given Latanoprost (Xalatan 0.005% Ophth Soln) 0 ml EYEBOTH BEDTIME MIN Lisinopril (Prinivil) 40 mg PO DAILY MIN Last Admin: 03/20/17 12:11 Dose: Not Given Multivitamins (Thera) 1 each PO DAILY [facility] Last Admin: 03/20/17 08:46 Dose: 1 each Sodium Chloride (Saline Flush) 10 ml FLUSH ASDIRECTED PRN PRN Reason: Keep Vein Open - Exam Quality Assessment: supplemental oxygen, DVT prophylaxis General: alert, oriented, cooperative, no acute distress HEENT: Pupils equal, Pupils reactive, EOMI Neck: supple, trachea midline, no JVD Lungs: Normal respiratory effort Cardiovascular: Regular Rate Abdomen: bowel sounds present, soft, no tenderness, no distension (Female) Exam: Deferred Back Exam: Normal Inspection Extremities: normal pulses Skin: warm Neurological: no new focal deficit Psy/Mental Status: alert, normal affect, normal mood - Problem List Review Problem List Initiated/Reviewed/Updated: Yes - My Orders Last 24 Hours: My Active Orders 03/25/17 17:40 Up With Assistance [RC] ASDIRECTED 03/27/17 05:00 BMP [BASIC METABOLIC PANEL,BMP] [CHEM] DAILY CBC WITH AUTO DIFF [HEME] DAILY MAGNESIUM [CHEM] DAILY - Plan Plan:: I/P: Fall with left knee pain- nondisplaced tibial plateau fracture - Orthopedics consulted - Dr. Lai recommendations- TTWB, hinged knee brace in locked full extension at all times, PT/OT, follow up with Orthopedics within 10-14 days for recheck; also recommends SNF stay. - Pain medications PRN - Ice to knee PRN - PT/OT pending Ortho recommendations Chronic: Dementia- end stage HTN- good control, cont home meds Glaucoma- cont home meds Other: - GI prophylax/DVT prophylax with SCD's for now - CM/SW for assist with DC planning---SW has been working diligently for discharge plan. Patient is medically stable for discharge and plan discharge for tomorrow--SNF/NH placement vs home with 24/7 family care pending families decision. - Labs this am unremarkable, UA negative - Fall precautions Patient is DNR/DNI code status; discuss/clarify comfort care. LOS > 96hrs pending NH/SH placement
[2017-03-26] MEDS: Latanoprost 0.005% Ophth Soln 2.5 ML Bottle **OWN MED EYEBOTH SCH (20:29)
[2017-03-27] MEDS: Acetaminophen 325 MG Tab PO PRN (03:01)
--- NOTE | 2017-03-27 07:37 | PCM.DCSUM1 ---
<Ericka Fragoso M - Last Filed: 03/27/17 07:23> Discharge Summary - Hospital Course Free Text/Narrative:: Carmel is an 86yo female resident from [facility] who was admitted through the ED last night after a fall with left lower extremity pain and inability to bare weight to left leg while in ER. Son gives me most of her history as she has end stage dementia. She suffered a fall last night while walking on her unit, "fell on her butt" but "seemed to have pain in her leg" so was brought into ER. This was unwitnessed fall, she was found on the floor. No other apparent injuries noted or reported. Patient has recently moved into [facility] 3 weeks ago, ambulates independently. Son reports "should use a walker but doesn't". She was previously living with her son who was caring for her. Today she is unable to answer most questions, does tell me her left knee hurts and winces in pain during exam of left knee today. PMH significant for dementia, HTN, vit D deficiency and glaucoma. She is DNR/ DNI code status. Patient was admitted. Orthopedics, Dr. Lai was consulted. She was found to have proximal tibial fracture around prior hardware placed for previous tibial plateau fx many years ago. She was treated nonsurgically with hinged knee brace in locked position at all times, toe touch weight bearing status. PT/OT worked with her. Pain was managed with tylenol and hydrocodone. She will be discharged today to SNF in [place]. - Discharge Data Discharge Date: 03/27/17 (admit date03/20/17) Discharge Disposition: DC/Tfer to [facility] Condition: Good - Discharge Diagnosis/Problem(s) (1) Knee pain, acute SNOMED Code(s): 80830675 ICD Code: M25.569 - PAIN IN UNSPECIFIED KNEE Status: Acute Priority: High Qualifiers: Laterality: left Qualified Code(s): M25.562 - Pain in left knee (2) Dementia SNOMED Code(s): 90279276 ICD Code: F03.90 - UNSPECIFIED DEMENTIA WITHOUT BEHAVIORAL DISTURBANCE Status: Chronic Priority: High Qualifiers: Dementia type: unspecified type Dementia behavioral disturbance: without behavioral disturbance Qualified Code(s): F03.90 - Unspecified dementia without behavioral disturbance (3) Fall SNOMED Code(s): 1069543, 750408002 ICD Code: W19.XXXA - UNSPECIFIED FALL, INITIAL ENCOUNTER Status: Inactive Priority: High Qualifiers: Encounter type: initial encounter Qualified Code(s): W19.XXXA - Unspecified fall, initial encounter (4) Tibial plateau fracture, left SNOMED Code(s): 709880421 ICD Code: S82.142A - DISPLACED BICONDYLAR FRACTURE OF LEFT TIBIA, INIT Status: Acute Priority: High Qualifiers: Encounter type: initial encounter Fracture type: closed Qualified Code(s) : S82.142A - Displaced bicondylar fracture of left tibia, initial encounter for closed fracture - Patient Summary/Data Operative Procedure(s) Performed: None Complications: None Consults: Consultations 03/20/17 02:25 Consult to Physician [CONS] Routine 03/20/17 18:50 Consult to Occupational Therapy [OT Evaluation and Treatment] [CONS] Routine PT Evaluation and Treatment [CONS] Routine Labs Pending at D/C: None Recommended Follow-up Testing/Procedures: Follow up with Dr. Lai, Orthopedics within 7-10 days of discharge Follow up with PCP within 1-2 weeks of discharge Planned Operative Procedure(s) after DC: None Hospital Course: As above - Patient Instructions Diet: Usual Diet as Tolerated Activity: As Tolerated Driving: Do Not Drive Showering/Bathing: May Shower Notify Provider of: Fever, Increased Pain, Swelling and Redness, Nausea and/or Vomiting Other/Special Instructions: - Please continue all your home medications. - You are high risk fall. - Follow up with your doctor after discharge. - Call your family doctor for any questions or concerns - Discharge Plan Prescriptions/Med Rec: Acetaminophen/HYDROcodone [[place] 325-10 MG] 1 tab PO Q4H PRN #20 tablet PRN Reason: Pain Famotidine [Pepcid] 20 mg PO DAILY #30 tablet Home Medications: Home Meds Ergocalciferol (Vitamin D2) [Vitamin D] 1.25 mg PO WEEKLY 03/19/17 [History] Latanoprost [Xalatan 0.005% Ophth Soln] 1 drop EYEBOTH BEDTIME 03/19/17 [History ] Lisinopril 1 tab PO DAILY 03/19/17 [History] Multivitamin [Multivitamins] 1 tab PO DAILY 03/19/17 [History] Acetaminophen [Tylenol] 650 mg PO Q4H PRN #0 tablet 03/27/17 [Rx] Acetaminophen/HYDROcodone [[place] 325-10 MG] 1 tab PO Q4H PRN #20 tablet [Rx] Docusate Sodium [Colace] 100 mg PO BID PRN #60 cap 03/27/17 [Rx] Famotidine [Pepcid] 20 mg PO DAILY #30 tablet 03/27/17 [Rx] Patient Handouts: Tibial Plateau Fracture With [facility], Knee Immobilizer, Fall Prevention in the Home Referrals: Delvis Lai MD [Physician] - 03/29/17 11:45 am (Patient will be seen by Sushila Marquez PA-C.) Bj Blank MD [Primary Care Provider] - (HOME MEDS IN [place]) - Discharge Summary/Plan Comment DC Time >30 min.: Yes (40 min) - General Info Date of Service: 03/27/17 Admission Dx/Problem (Free Text: Admission Diagnosis/Problem Admission Diagnosis/Problem Fall with left leg pain, knee swelling--fracture of lt tibial plateau, around prior hardware. Functional Status: Reports: pain controlled, tolerating diet, ambulating (with PT/OT; noncompliant with TTWB restrictions when up), urinating (incontinent) - Review of Systems General: Denies: Fever Pulmonary: Denies: shortness of breath Gastrointestinal: Denies: Abdominal pain Musculoskeletal: Reports: leg pain Systems Review Comment: Difficult or unable to obtain due to end stage dementia - Patient Data Vitals - Most Recent: Last Vital Signs Temp 98.8 F 03/27/17 03:05 Pulse 84 03/27/17 03:05 Resp 12 03/27/17 03:05 BP 149/99 H 03/27/17 03:05 Pulse Ox 96 03/27/17 03:05 Weight - Most Recent: 53.66 kg I&O - Last 24 hours: Intake & Output 03/26/17 03/27/17 03/27/17 22:59 06:59 14:59 Intake Total 610 200 Output Total 0 Balance 610 200 Lab Results - Last 24 hrs: Laboratory Results - last 24 hr 03/27/17 03/27/17 Range/Units 06:08 06:08 WBC 7.91 (3.98-10.04) K/mm3 RBC 4.47 (3.98-5.22) M/mm3 Hgb 13.4 (11.2-15.7) gm/L Hct 42.1 (34.1-44.9) % MCV 94.2 (79.4-94.8) fl MCH 30.0 (25.6-32.2) pg MCHC 31.8 L (32.2-35.5) g/dl RDW Std Deviation 46.6 H (36.4-46.3) fL Plt Count 349 (182-369) K/mm3 MPV 9.9 (9.4-12.3) fl Neut % (Auto) 67.6 (34.0-71.1) % Lymph % (Auto) 18.7 L (19.3-51.7) % [place] % (Auto) 10.1 (4.7-12.5) % Eos % (Auto) 1.4 (0.7-5.8) Baso % (Auto) 0.6 (0.1-1.2) % Neut # (Auto) 5.34 (1.56-6.13) K/mm3 Lymph # (Auto) 1.48 (1.18-3.74) K/mm3 [place] # (Auto) 0.80 H (0.24-0.36) K/mm3 Eos # (Auto) 0.11 (0.04-0.36) K/mm3 Baso # (Auto) 0.05 (0.01-0.08) K/mm3 Sodium 140 (136-145) mEq/L Potassium 4.3 (3.5-5.1) mEq/L Chloride 106 (98-107) mEq/L Carbon Dioxide 23 (21-32) mEq/L Anion Gap 15.3 H (5-15) BUN 22 H (7-18) mg/dL Creatinine 1.0 (0.55-1.02) mg/dL Est Cr Clr Drug Dosing 31.94 mL/min Estimated GFR (MDRD) 53 (>60) mL/min BUN/Creatinine Ratio 22.0 H (14-18) Glucose 90 (83-115) mg/dL Calcium 9.8 (8.5-10.1) mg/dL Magnesium 1.9 (1.8-2.4) mg/dl Med Orders - Current: Current Medications Acetaminophen (Tylenol) 650 mg PO Q4H PRN PRN Reason: Pain Last Admin: 03/27/17 03:01 Dose: 650 mg Hydrocodone Bitart/Acetaminophen ([place] 325-10 Mg) 1 - 2 tab PO Q6H PRN PRN Reason: Pain Last Admin: 03/26/17 20:29 Dose: 1 tab Docusate Sodium (Colace) 100 mg PO BID PRN PRN Reason: Constipation Last Admin: 03/21/17 12:04 Dose: 100 mg Ergocalciferol (Vitamin D2) 50,000 units PO We@0900 [facility] Last Admin: 03/20/17 08:46 Dose: 50,000 units Famotidine (Pepcid) 20 mg PO DAILY [facility] Last Admin: 03/26/17 09:29 Dose: 20 mg Latanoprost (Xalatan 0.005% Ophth Soln) 0 ml EYEBOTH BEDTIME [facility] Last Admin: 03/26/17 20:29 Dose: 1 drop Multivitamins (Thera) 1 each PO DAILY [facility] Last Admin: 03/26/17 09:30 Dose: 1 each Lisinopril 40 Mg (Own Med) 1 each PO DAILY [facility] Last Admin: 03/26/17 09:30 Dose: 1 each Discontinued Medications Hydrocodone Bitart/Acetaminophen ([place] 325-5 Mg) 2 tab PO ONETIME ONE Stop: 03/20/17 01:09 Last Admin: 03/20/17 01:14 Dose: 2 tab Bisacodyl (Dulcolax) 10 mg RECTAL ONETIME ONE Stop: 03/22/17 08:16 Last Admin: 03/22/17 08:34 Dose: 10 mg Hydromorphone HCl (Dilaudid) 0.5 mg IVPUSH ONETIME ONE Stop: 03/20/17 01:03 Last Admin: 03/20/17 01:14 Dose: Not Given Latanoprost (Xalatan 0.005% Ophth Soln) 0 ml EYEBOTH BEDTIME [facility] Lisinopril (Prinivil) 40 mg PO DAILY MIN Last Admin: 03/20/17 12:11 Dose: Not Given Multivitamins (Thera) 1 each PO DAILY MIN Last Admin: 03/20/17 08:46 Dose: 1 each Sodium Chloride (Saline Flush) 10 ml FLUSH ASDIRECTED PRN PRN Reason: Keep Vein Open - Exam Quality Assessment: Reports: DVT prophylaxis General: Reports: alert, cooperative, no acute distress HEENT: Reports: Pupils equal, Pupils reactive, EOMI, Mucous membr. moist/pink Neck: Reports: supple Lungs: Reports: Clear to auscultation, Normal respiratory effort, Decreased breath sounds (bases) Cardiovascular: Reports: Regular Rate, Regular Rhythm (Female) Exam: Deferred Rectal (Female) Exam: Deferred Extremities: Reports: no edema, other (knee immobilizer in place to lt leg) Neurological: Reports: other (end stage dementia) Psy/Mental Status: Reports: other (pleasantly confused) *Q Meaningful Use (DIS) - VTE *Q VTE Criteria *Q: - Stroke *Q Stroke Criteria *Q: - AMI *Q AMI Criteria *Q: <Bethanie Munoz - Last Filed: 03/27/17 14:39> Discharge Summary - Hospital Course Free Text/Narrative:: See summary for details, agree as outlined. - Patient Summary/Data Consults: Consultations 03/20/17 02:25 Consult to Physician [CONS] Routine 03/20/17 18:50 Consult to Occupational Therapy [OT Evaluation and Treatment] [CONS] Routine PT Evaluation and Treatment [CONS] Routine - Patient Data Vitals - Most Recent: Last Vital Signs Temp 37.1 C 03/27/17 08:16 Pulse 88 03/27/17 08:16 Resp 20 03/27/17 08:16 BP 154/72 H 03/27/17 08:16 Pulse Ox 97 03/27/17 08:16 I&O - Last 24 hours: Intake & Output 03/26/17 03/27/17 03/27/17 22:59 06:59 14:59 Intake Total 940 200 330 Output Total 0 Balance 940 200 330 Lab Results - Last 24 hrs: Laboratory Results - last 24 hr 03/27/17 03/27/17 Range/Units 06:08 06:08 WBC 7.91 (3.98-10.04) K/mm3 RBC 4.47 (3.98-5.22) M/mm3 Hgb 13.4 (11.2-15.7) gm/L Hct 42.1 (34.1-44.9) % MCV 94.2 (79.4-94.8) fl MCH 30.0 (25.6-32.2) pg MCHC 31.8 L (32.2-35.5) g/dl RDW Std Deviation 46.6 H (36.4-46.3) fL Plt Count 349 (182-369) K/mm3 MPV 9.9 (9.4-12.3) fl Neut % (Auto) 67.6 (34.0-71.1) % Lymph % (Auto) 18.7 L (19.3-51.7) % [place] % (Auto) 10.1 (4.7-12.5) % Eos % (Auto) 1.4 (0.7-5.8) Baso % (Auto) 0.6 (0.1-1.2) % Neut # (Auto) 5.34 (1.56-6.13) K/mm3 Lymph # (Auto) 1.48 (1.18-3.74) K/mm3 [place] # (Auto) 0.80 H (0.24-0.36) K/mm3 Eos # (Auto) 0.11 (0.04-0.36) K/mm3 Baso # (Auto) 0.05 (0.01-0.08) K/mm3 Manual Slide Review Normal smear Sodium 140 (136-145) mEq/L Potassium 4.3 (3.5-5.1) mEq/L Chloride 106 (98-107) mEq/L Carbon Dioxide 23 (21-32) mEq/L Anion Gap 15.3 H (5-15) BUN 22 H (7-18) mg/dL Creatinine 1.0 (0.55-1.02) mg/dL Est Cr Clr Drug Dosing 31.94 mL/min Estimated GFR (MDRD) 53 (>60) mL/min BUN/Creatinine Ratio 22.0 H (14-18) Glucose 90 (83-115) mg/dL Calcium 9.8 (8.5-10.1) mg/dL Magnesium 1.9 (1.8-2.4) mg/dl Med Orders - Current: Current Medications Discontinued Medications Acetaminophen (Tylenol) 650 mg PO Q4H PRN PRN Reason: Pain Last Admin: 03/27/17 03:01 Dose: 650 mg Hydrocodone Bitart/Acetaminophen ([place] 325-5 Mg) 2 tab PO ONETIME ONE Stop: 03/20/17 01:09 Last Admin: 03/20/17 01:14 Dose: 2 tab Hydrocodone Bitart/Acetaminophen ([place] 325-10 Mg) 1 - 2 tab PO Q6H PRN PRN Reason: Pain Last Admin: 03/27/17 08:02 Dose: 2 tab Bisacodyl (Dulcolax) 10 mg RECTAL ONETIME ONE Stop: 03/22/17 08:16 Last Admin: 03/22/17 08:34 Dose: 10 mg Docusate Sodium (Colace) 100 mg PO BID PRN PRN Reason: Constipation Last Admin: 03/21/17 12:04 Dose: 100 mg Ergocalciferol (Vitamin D2) 50,000 units PO We@0900 [facility] Last Admin: 03/27/17 08:01 Dose: 50,000 units Famotidine (Pepcid) 20 mg PO DAILY [facility] Last Admin: 03/27/17 08:02 Dose: 20 mg Hydromorphone HCl (Dilaudid) 0.5 mg IVPUSH ONETIME ONE Stop: 03/20/17 01:03 Last Admin: 03/20/17 01:14 Dose: Not Given Latanoprost (Xalatan 0.005% Ophth Soln) 0 ml EYEBOTH BEDTIME [facility] Latanoprost (Xalatan 0.005% Ophth Soln) 0 ml EYEBOTH BEDTIME [facility] Last Admin: 03/26/17 20:29 Dose: 1 drop Lisinopril (Prinivil) 40 mg PO DAILY [facility] Last Admin: 03/20/17 12:11 Dose: Not Given Multivitamins (Thera) 1 each PO DAILY [facility] Last Admin: 03/20/17 08:46 Dose: 1 each Multivitamins (Thera) 1 each PO DAILY [facility] Last Admin: 03/27/17 08:02 Dose: 1 each Lisinopril 40 Mg (Own Med) 1 each PO DAILY [facility] Last Admin: 03/27/17 08:01 Dose: 1 each Sodium Chloride (Saline Flush) 10 ml FLUSH ASDIRECTED PRN PRN Reason: Keep Vein Open *Q Meaningful Use (DIS) - VTE *Q VTE Criteria *Q: - Stroke *Q Stroke Criteria *Q: - AMI *Q AMI Criteria *Q:
[2017-03-27] MEDS: Ergocalciferol (Vitamin D2) 50,000 Unit Cap PO SCH (08:01)
[2017-03-27] MEDS: LISINOPRIL 40 MG **OWN MED PO SCH (08:01)
[2017-03-27] MEDS: Acetaminophen/HYDROcodone 325-10 MG Tab PO PRN (08:02)
[2017-03-27] MEDS: Famotidine 20 MG Tab PO SCH (08:02)
[2017-03-27] MEDS: MULTIVITAMINS THERAPEUTIC PO SCH (08:02)
[2017-03-27 08:16] VITALS: BP 154/72
== END 2017-03-27 08:43 ==
LOC: JD.ED 22:03 → INTOOBSV 03-20 01:19 → JD.MS 03-20 01:19
PROVIDERS: ADMIT Internal Medicine; ATTEND Internal Medicine
DX: S82.142A Displaced bicondylar fracture of left tibia, initial encounter for closed fracture (principal); I10 Essential (primary) hypertension; E55.9 Vitamin D deficiency, unspecified; F03.90 Unspecified dementia, unspecified severity, without behavioral disturbance, psychotic disturbance, mood disturbance, and anxiety; Z79.899 Other long term (current) drug therapy; Z66 Do not resuscitate; W19.XXXA Unspecified fall, initial encounter
CPT/HCPCS: 36415; 72100; 73501; 73502; 73562; 80048; 81001; 83735; 85025; 87641; 97110; 97162; 97167; 97530; 99284; A9270; G0378